=== PATIENT | male | born 1995 | race Caucasian/White ===

== ENCOUNTER 2018-05-03 11:50 | Emergency (ER) | payer OTHER ==
[~2018-05-03] VITALS: Ht 172.7 cm; Wt 127.0 kg
[2018-05-03 12:30] LABS: URINE BILIRUBIN NEGATIVE (Negative); URINE BLOOD TRACE (Negative); URINE CLARITY CLEAR; URINE COLOR YELLOW; URINE GLUCOSE-RANDOM* NEGATIVE (Negative); URINE KETONES NEGATIVE (Negative); URINE LEUKOCYTES-REFLEX NEGATIVE (Negative); URINE NITRITE-REFLEX NEGATIVE (Negative); URINE PROTEIN (DIPSTICK) NEGATIVE (Negative); URINE UROBILINOGEN 0.2 E.U./dl (0.2-1.0)
[2018-05-03 15:05] VITALS: BP 99/76
== END 2018-05-03 15:05 | disposition home or self-care (01) ==
LOC: ER 11:50
PROVIDERS: Nurse Practitioner
DX: N50.812 Left testicular pain (principal); N50.811 Right testicular pain

== ENCOUNTER 2018-11-28 22:25 | Emergency (ER) | payer OTHER ==
[~2018-11-28] VITALS: Ht 175.3 cm; Wt 122.5 kg
[2018-11-28] MEDS ORDERED: IBUPROFEN 400400 M2 PO (23:22)
[2018-11-28 23:32] VITALS: BP 114/69
--- NOTE | 2018-11-29 09:20 | EKG ---
[address] [address] ELECTROCARDIOGRAM REPORT Name: RANDA MATIAS Room #: [facility]P [facility] [id number] ������������������ Admission: 11/28/18 ������������������ Attend Phys: Discharge: 11/28/18 ������������������ Date of : 89 Report #: [id number] ����������������������������������������������������������������� [id number] THIS REPORT FOR: //name// [facility] ED Test Date: 2018-11-28 Test Time: 22:32:07 Pat Name: RANDA MATIAS Department: Room: Gender: M [employer]: [id number] : 1995 Requested By: Marycarmen Nichols Order Number: [id number] MD: Yariel Morgan Measurements Intervals [place] Rate: 74 P: 18 HI: 165 QRS: 39 QRSD: 86 T: 17 QT: 350 QTc: 389 Interpretive Statements Sinus rhythm Normal tracing No previous ECG available for comparison Electronically Signed On 11-29-2018 9:20:42 CDT by Yariel Morgan [email or web address] ��������������������������������������������� <ELECTRONICALLY SIGNED> ���������������������������������������� By: Yariel Morgan MD, [facility] ��������������������������������������������� 11/29/18 09 31 31 Yariel Morgan MD, FACC /EPI
== END 2018-11-28 23:33 | disposition home or self-care (01) ==
LOC: ER 22:25
DX: M94.0 Chondrocostal junction syndrome [Tietze] (principal); E78.00 Pure hypercholesterolemia, unspecified; E66.9 Obesity, unspecified; I10 Essential (primary) hypertension; Z68.39 Body mass index [BMI] 39.0-39.9, adult

== ENCOUNTER 2019-05-15 21:07 | Emergency (ER) | payer OTHER ==
[~2019-05-15] VITALS: Ht 172.7 cm; Wt 129.3 kg
[~2019-05-15 21:07] MED LIST: IBUPROFEN 400400 M2 PO
[2019-05-15] MEDS ORDERED: NOHOMEMEDICATIONS (21:33)
[2019-05-15] MEDS ORDERED: NAPROSYN500 MG PO (22:37)
[2019-05-15 22:44] VITALS: BP 164/70
== END 2019-05-15 22:45 | disposition home or self-care (01) ==
LOC: ER 21:07
DX: M79.675 Pain in left toe(s) (principal); M79.89 Other specified soft tissue disorders

== ENCOUNTER 2019-07-01 19:41 | Emergency (ER) | payer OTHER ==
[~2019-07-01] VITALS: Ht 172.7 cm; Wt 131.5 kg
[~2019-07-01 19:41] MED LIST changes: +NAPROSYN500 MG PO; +NOHOMEMEDICATIONS
[2019-07-01 21:42] VITALS: BP 142/87
== END 2019-07-01 21:42 | disposition home or self-care (01) ==
LOC: ER 19:41
DX: M54.6 Pain in thoracic spine (principal); M62.830 Muscle spasm of back; E78.00 Pure hypercholesterolemia, unspecified